=== PATIENT | male | born 1935 | race Caucasian/White ===

== ENCOUNTER → 2021-02-01 | Outpatient (CLI) | payer MEDICARE ==
[~2021-02-01] MED LIST: ARTIFICIAL TEAR15 M2 BOTHEYES; CYCLOBENZAPRINE5 MG PO; DOCUZEN 8.6-501 EACH PO; Hair, Skin & N1 EACH PO; IMBRUVICA420 MG PO; LIDO700A20 TOP; MELA3 PO; METAXALONE400 MG PO; METO25ER PO; MIRALAX17 GM PO; OMEP20ER PO; OXYC5 PO; OYSTER SHELL 51 EACH PO; Prozac20 MG PO; TAMS.4ER PO; TRAZ100 PO; WARF3 PO
[2021-02-01 23:37] LABS: International Normalized Ratio 2.21; Prothrombin Time Results 22.8 Sec (9.7-11.5)
== END | disposition home or self-care (01) ==
LOC: EDSTATUS 10:56 → LAB RH 20:48
PROVIDERS: Internal Medicine
DX: U07.1 COVID-19 (principal); C85.90 Non-Hodgkin lymphoma, unspecified, unspecified site; E56.8 Deficiency of other vitamins; F39 Unspecified mood [affective] disorder; G89.29 Other chronic pain; H04.123 Dry eye syndrome of bilateral lacrimal glands; I10 Essential (primary) hypertension; I48.91 Unspecified atrial fibrillation; K21.9 Gastro-esophageal reflux disease without esophagitis; K59.00 Constipation, unspecified; M62.838 Other muscle spasm; N40.0 Benign prostatic hyperplasia without lower urinary tract symptoms; N42.9 Disorder of prostate, unspecified
CPT/HCPCS: 85610

== ENCOUNTER 2021-02-09 08:40 | Inpatient (IN) | payer MEDICARE ==
[~2021-02-09] VITALS: Ht 170.2 cm; Wt 67.2 kg
[2021-02-09 09:02] LABS: PCO2 Arterial 30.8 mmHg (35-45); PO2 Arterial 58.2 mmHg (80-100); pH Blood Arterial 7.42 (7.35-7.45)
[2021-02-09 09:04] LABS: BASOPHILS ABSOLUTE AUTO 0.03 K/mm3 (0.00-0.23); BASOPHILS PERCENT AUTO 0 % (0-2); Hematocrit 36.6 % (37.0-53.0); LYMPHOCYTES ABSOLUTE AUTO 0.22 K/mm3 (0.84-5.20); LYMPHOCYTES PERCENT AUTO 1 % (21-46); MONOCYTES ABSOLUTE AUTO 0.93 K/mm3 (0.16-1.47); MONOCYTES PERCENT AUTO 4 % (4-13); Mean Corpuscular HGB 29.3 pg (26.0-34.0); Mean Corpuscular HGB Conc 32.8 g/dL (31.5-36.5); Mean Corpuscular Volume 90 fL (80-100); Mean Platelet Volume 11.9 fL (9.1-12.4); Platelet Count 171 K/mm3 (150-400); RDW Coefficient Variation 14.2 % (11.7-14.2); RDW Standard Deviation 46.5 fL (35.1-46.3); Red Blood Cell Count 4.09 M/mm3 (4.30-5.90); White Blood Cell Count 21.13 K/mm3 (4.00-11.30)
[2021-02-09 09:06] LABS: EOSINOPHILS PERCENT AUTO 0 % (0-6); IMMATURE GRAN ABSOLUTE AUTO 0.15 K/mm3 (0.00-0.10); IMMATURE GRAN PERCENT AUTO 1 % (0-1); NEUTROPHILS PERCENT AUTO 94 % (41-73)
[2021-02-09 09:31] LABS: Alanine Aminotransfer (ALT/SGP 20 U/L (12-78); Albumin/Globulin Ratio 0.7 (0.8-1.8); Alk Phos 135 U/L (50-136); Anion Gap 12 mmol/L (6-16); Aspartate Aminotrans (AST/SGOT 52 U/L (12-37); Bilirubin, Total 1.1 mg/dL (0.1-1.0); Blood Urea Nitrogen 21 mg/dL (8-24); Bun/Creatinine Ratio 19.6 (12.0-20.0); CO2, Blood 21 mmol/L (21-32); Calcium, Blood 8.6 mg/dL (8.5-10.1); Chloride, Blood 100 mmol/L (98-108); Creatinine, Blood 1.07 mg/dL (0.60-1.20); Ferritin, Serum 1260 ng/mL (26-388); Globulin, Blood 4.4 g/dL (2.2-4.0); Glomerular Filtration Rate >60 (60-); Glucose, Blood 161 mg/dL (70-99); Lactate Dehydrogenase (Ld),Bld 460 U/L (100-240); Potassium, Blood 3.6 mmol/L (3.5-5.5); Sodium, Blood 133 mmol/L (136-145); Total Protein, Blood 7.4 g/dL (6.4-8.2)
[2021-02-09 09:51] LABS: SARS-Cov-2 (COVID-19) PCR, MMC POSITIVE (NEGATIVE)
[2021-02-09] MEDS ORDERED: OYSTER SHELL 51 EACH PO (12:03)
[2021-02-09] MEDS ORDERED: WARF3 PO (12:03)
[2021-02-09] MEDS ORDERED: CYCLOBENZAPRINE5 MG PO (12:04)
[2021-02-09] MEDS ORDERED: IMBRUVICA420 MG PO (12:04)
[2021-02-09] MEDS ORDERED: Prozac20 MG PO (12:04)
[2021-02-09] MEDS ORDERED: METAXALONE400 MG PO (12:05)
[2021-02-09] MEDS ORDERED: LIDO700A20 TOP (12:05)
[2021-02-09] MEDS ORDERED: MELA3 PO (12:05)
[2021-02-09] MEDS ORDERED: Hair, Skin & N1 EACH PO (12:06)
[2021-02-09] MEDS ORDERED: METO25ER PO (12:06)
[2021-02-09] MEDS ORDERED: OXYC5 PO (12:06)
[2021-02-09] MEDS ORDERED: OMEP20ER PO (12:06)
[2021-02-09] MEDS ORDERED: MIRALAX17 GM PO (12:06)
[2021-02-09] MEDS ORDERED: ARTIFICIAL TEAR15 M2 BOTHEYES (12:07)
[2021-02-09] MEDS ORDERED: TRAZ100 PO (12:07)
[2021-02-09] MEDS ORDERED: DOCUZEN 8.6-501 EACH PO (12:07)
[2021-02-09] MEDS ORDERED: TAMS.4ER PO (12:07)
[2021-02-09 12:51] LABS: International Normalized Ratio >10.00
[2021-02-09 12:54] LABS: Prothrombin Time Results >90.0 Sec (9.7-11.5)
[2021-02-09 12:54] LABS: Prothrombin Time Results >90.0 Sec (9.7-11.5)
[2021-02-09 12:55] LABS: International Normalized Ratio >10.00
[2021-02-09 13:23] LABS: Source, Urine Clean Catch
[2021-02-09 13:32] LABS: Appearance, Urine Clear (Clear); Bilirubin, Urine Neg (Neg); Blood, Urine 4+ (Neg); Color, Urine Yellow (P-Yellow); Glucose Qualitative, Urine Neg (Neg); Ketones, Urine Neg (Neg); Leukocyte Esterase, Urine Neg (Neg); Nitrite, Urine Neg (Neg); Protein, Urine 3+ (Neg); Urobilinogen, Urine 1+ (Normal)
[2021-02-09 13:43] LABS: Bacteria Few /hpf; Red Blood Cells, Urine 25-50 /hpf (0-2); Squamous Epithelial Cells Rare /hpf (Few); White Blood Cells, Urine 0-2 /hpf (0-5)
--- NOTE | 2021-02-09 13:43 | NUR ---
PT ARRIVES TO ICU AT 1255, PT IS UNABLE TO VERBALIZE ANY ANSWERS. PT NODS HEAD, SQUEEZES HAND IN RESPONSE. ON BIPAP / FI02 UP TO 70%. PT GRIMACING WITH ANY TOUCH, ASKED IF PAINFUL, NODS, MEDICATED WITH FENTANYL PER ORDERS. PT NOW APPEARS MORE COMFORTABLE, RESPIRATORY RATE IS IN THE 30'S, LUNG SOUNDS ARE RHONCHI IN THE BASES WITH OCC WET/MOIST COUGH. PT WITH PULSES PALPABLE, ABDOMEN NON-TENDER, VELASQUEZ CATHETER PLACED, URINE SENT.
--- NOTE | 2021-02-09 16:26 | NUR ---
PT'S DAUGHTER AND GRANDDAUGHTER IN THE ROOM AT THE BEDSIDE. HAD A MEETING WITH PALLIATIVE CARE AND MADE DECISION TO MAKE JAS COMFORTABLE. MEDICATED WITH MORPHINE AND SCOPALAMINE. PT STILL TWITCHING AND WORK OF BREATHING IS LABORED. WILL TRY MORE MEDICATION TO MAKE COMFORTABLE.
--- NOTE | 2021-02-09 17:32 | NUR ---
PT RESTING QUIETLY WITH DAUGHTER AND GRANDDAUGHTER AT BEDSIDE.
--- NOTE | 2021-02-09 17:56 | NUR ---
Received a call from ICU charge nurse Marbella regarding this pt's change in condition. Made a visit to pt's room, talked with pt's granddaughter in the hallway. At that point, plan was for patient to remain full code as were his wishes. Pt was on bipap at that time, non-responsive besides squeezing hands of nurse and/or loved ones.
--- NOTE | 2021-02-09 18:06 | NUR ---
Early this afternoon, pt's daughter Liza had arrived from the [facility] and was sitting at pt's bedside, holding his hand with granddaughter also present. I invited them to step out of pt's room for a quick meeting. Once we had stepped into a private area to talk, pt's daughter Liza began to cry. She stated she knows her dad doesn't look very good, and I agreed. At this point, he was no longer responsive the way he had been in the ED earlier today when he was SOB but still able to make his wants and needs known. Liza described the level of uncontrolled pain pt had been in for past month due to fractured, unhealing vertabraes along with lymphoma, and now a diagnosis of Covid-19. Liza states she has already talked with her brothers and sisters and they are all in agreement that if patient is unable to respond, they will change his status to comfort care. And at this time, pt is unable to respond. His 02 is between 89 and 90% on hi-flow 02 via bipap. Liza decided to change pt's code to "comfort care". Placed call to YAMILETH Houser. He is agreeable with the decision, as pt is no longer able to make his own needs and wants known the way he was this am. ICU bedside RN aware, and comfort orders placed by this RN, along with code status changed to DNR by YAMILETH Houser. Family again verbalizes this being the choice they are all comfortable, as scooby De Jesus states, "Even if we could bring him back, what are we bringing him back to? Misery, shortness of breath, horrible back pain?" She verbalizes how thankful she is to the assistance of [facility] staff.
--- NOTE | 2021-02-09 18:38 | NUR ---
PT MEDICATED AND REPOSITIONED. BOTH DAUGHTERS AND GRANDDAUGHTER AT BEDSIDE, ASKED FOR BIPAP TO COME OFF.
--- NOTE | 2021-02-09 19:00 | NUR ---
CAME IN TO CHECK ON PATIENT, NO HEART TONES, NO RESPIRATIONS. FAMILY AWARE. TIME OF 1855.
[2021-02-11 12:52] LABS: Performing Lab STATE LAB; Test Name COVID19
== END 2021-02-09 18:56 | DRG 177 ==
LOC: ER 08:40 → ICUW 11:11
PROVIDERS: Anesthesiology; Emergency Medicine; Nurse Practitioner Acute Care; ADMIT Internal Medicine
PROC: 5A09357 Assistance with Respiratory Ventilation, Less than 24 Consecutive Hours, Continuous Positive Airway Pressure (ICD-10-PCS; principal; 2021-02-09)
PROC: 5A0935A Assistance with Respiratory Ventilation, Less than 24 Consecutive Hours, High Flow/Velocity Cannula (ICD-10-PCS; 2021-02-09)
PROC: 8E0ZXY6 Isolation (ICD-10-PCS; 2021-02-09)
PROC: XW033E5 Introduction of Remdesivir Anti-infective into Peripheral Vein, Percutaneous Approach, New Technology Group 5 (ICD-10-PCS; 2021-02-09)
DX: U07.1 COVID-19 (principal); J12.82 Pneumonia due to coronavirus disease 2019; J96.01 Acute respiratory failure with hypoxia; J15.9 Unspecified bacterial pneumonia; I21.4 Non-ST elevation (NSTEMI) myocardial infarction; C85.90 Non-Hodgkin lymphoma, unspecified, unspecified site; Z51.5 Encounter for palliative care; I48.91 Unspecified atrial fibrillation; N40.0 Benign prostatic hyperplasia without lower urinary tract symptoms; K21.9 Gastro-esophageal reflux disease without esophagitis; I10 Essential (primary) hypertension
CPT/HCPCS: 36415; 36600; 71045; 80053; 81001; 82728; 82803; 83605; 83615; 83880; 84145; 84484; 85025; 85610; 85730; 87040; 87077; 87147; 87186; 93005; 93010; 94660; 96365; 96367; 96375; 99285-25; A9270; J0456; J0696; J1100; J1170; J2060; J2270; J3010; J7040; J7050; U0004